=== PATIENT | male | born 1995 | race Two or more races ===

== ENCOUNTER 2024-09-04 15:08 | Inpatient (IN) | payer MEDICAID ==
[~2024-09-04] VITALS: Ht 172.7 cm; Wt 99.0 kg
--- NOTE | 2024-09-04 15:47 | ED.PDOC ---
History of Present Illness HPI Comments 29 y/o overweight M, with a history of kidney stones and marijuana use, presents with c/o nonradiating, right-sided flank pain, nausea, vomiting, and chills, today. Patient reports sudden and unprovoked onset of symptoms at 0800, this morning. He endorses on no history of recent injuries, sick contact, spoiled food, or any further relevant past medical, surgical, or family history. Patient denies any hematuria, hematemesis, diarrhea, fever, chills, or other associated symptoms at this time. Time Seen by MD: 15:40 Reviewed Notes: Nurses Notes, Medications, Allergies Allergies: Coded Allergies: NO KNOWN ALLERGIES (Unverified , 09/04/24) Information Source: Patient Mode of Arrival: Ambulatory Severity: Moderate Timing: Hours Duration: Since onset Prehospital treatment: None Past Medical History PAST MEDICAL HISTORY: Kidney Stones Surgical History: Denies all surgeries Family History Family History: Unknown Social History Smoker: Non-Smoker Alcohol: Denies ETOH Use Drugs: Marijuana Lives In: Home Constitutional: reports: chills; denies: diaphoresis, fatigue, fever, malaise, sweats, weakness, others EENTM: denies: blurred vision, double vision, ear bleeding, ear discharge, ear drainage, ear pain, ear ringing, eye pain, eye redness, hearing loss, mouth pain, mouth swelling, nasal discharge, nose bleeding, nose congestion, nose pain, photophobia, tearing, throat pain, throat swelling, voice changes, others Respiratory: denies: cough, hemoptysis, orthopnea, SOB at rest, shortness of breath, SOB with excertion, stridor, wheezing, others Cardiovascular: denies: chest pain, dizzy spells, diaphoresis, Dyspnea on exertion, edema, irregular heart beat, left arm pain, lightheadedness, palpitations, PND, syncope, others Gastrointestinal: reports: nausea, vomiting; denies: abdomen distended, abdominal pain, blood streaked bowels, constipated, diarrhea, dysphagia, difficulty swallowing, hematemesis, melena, poor appetite, poor fluid intake, rectal bleeding, rectal pain, others Genitourinary: reports: flank pain (right-side); denies: burning, dysuria, frequency, hematuria, incontinence, penile discharge, penile sore, pain, testicle pain, testicle swelling, urgency, others Neurological: denies: dizziness, fainting, headache, left sided numbness, left sided weakness, numbness, paresthesia, pre-existing deficit, right sided numbness, right sided weakness, seizure, speech problems, tingling, tremors, weakness, others Musculoskeletal: denies: back pain, gout, joint pain, joint swelling, muscle pain, muscle stiffness, neck pain, others Integumetry: denies: bruises, change in color, change in hair/nails, dryness, laceration, lesions, lumps, rash, wounds, others Allergic/Immunocompromised: denies: Difficulty Healing, Frequent Infections, Hives, Itching, others Hematologic/Lymphatic: denies: anemia, blood clots, easy bleeding, easy bruising, swollen glands, others Endocrine: denies: excessive hunger, excessive sweating, excessive thirst, excessive urination, flushing, intolerance to cold, intolerance to heat, unexplained weight gain, unexplained weight loss, others Psychiatric: denies: anxiety, bipolar disorder, depression, hopeless, panic disorder, schizophrenia, sleepless, suicidal, others All Other Systems: Reviewed and Negative Physical Exam General Appearance: Moderate Distress HEENT: Normal ENT Inspection, Pharynx Normal, TMs Normal Neck: Full Range of Motion, Non-Tender, Normal, Normal Inspection Respiratory: Chest Non-Tender, Lungs Clear, No Accessory Muscle Use, No Respir atory Distress, Normal Breath Sounds Cardiovascular: No Edema, No JVD, No Murmur, No Gallop, Normal Peripheral Pulses, Regular Rate/Rhythm Breast Exam: Deferred Gastrointestinal: No Organomegaly, Non Tender, No Pulsatile Mass, Normal Bowel Sounds, Soft Genitalia: Deferred Pelvic: Deferred Rectal: Deferred Extremities: No calf tenderness, Normal capillary refill, Normal inspection, Normal range of motion, Non-tender, No pedal edema Musculoskeletal : Location: Right Extremity Location: Back Apperance: Tenderness: Moderate Neurologic: Alert, plate maker II-XII nml as Tested, No Motor Deficits, Normal Affect, Normal Mood, No Sensory Deficits Cerebellar Function: Normal Reflexes: Normal Skin: Dry, Normal Color, Warm Lymphatic: No Adenopathy Was a procedure done? Was a procedure done?: No Differential Dx Considerations may include: nephrolithiasis, cystitis, musculoskeletal pain, among others X-Ray, Labs, Meds, VS Vital Signs Date Time Temp Pulse Resp B/P (MAP) Pulse Ox O2 Delivery O2 Flow Rate FiO2 09/04/24 15:20 97.2 55 18 146/80 (102) 97 97.2 Lab Test 09/04/24 16:12 09/04/24 15:40 Range/Units White Blood Count 13.7 H 4.4-10.8 10^3/uL Red Blood Count 5.41 4.5-5.90 10^6/uL Hemoglobin 15.7 13.5-17.5 g/dL Hematocrit 46.0 41.0-53.0 % Mean Corpuscular Volume 84.9 80.0-100.0 fL Mean Corpuscular Hemoglobin 29.0 28.0-32.0 pg Mean Corpuscular Hemoglobin Concent 34.2 32.0-36.0 g/dL Red Cell Distribution Width 13.6 11.8-14.3 % Platelet Count 221 140-450 10^3/uL Mean Platelet Volume 8.5 6.9-10.8 fL Neutrophils (%) (Auto) 91.4 H 37.0-80.0 % Lymphocytes (%) (Auto) 5.9 L 10.0-50.0 % Monocytes (%) (Auto) 2.5 0.0-12.0 % Eosinophils (%) (Auto) 0.0 0.0-7.0 % Basophils (%) (Auto) 0.2 0.0-2.0 % Neutrophils # (Auto) 12.5 H 1.6-8.6 10 ^3/uL Lymphocytes # (Auto) 0.8 0.4-5.4 10 ^3/uL Monocytes # (Auto) 0.3 0-1.3 10 ^3/uL Eosinophils # (Auto) 0 0-0.8 10 ^3/uL Basophils # (Auto) 0 0-0.2 10 ^3/uL Nucleated Red Blood Cells 0.1 % Sodium Level 138 136-145 mmol/L Potassium Level 4.2 3.5-5.1 mmol/L Chloride Level 107 98-107 mmol/L Carbon Dioxide Level 21 20-31 mmol/L Anion Gap 10 5-15 Blood Urea Nitrogen 9 9-23 mg/dL Creatinine 1.18 0.700-1.30 mg/dL Glomerular Filtration Rate Calc 85 >90 mL/min BUN/Creatinine Ratio 7.6 L 10.0-20.0 Serum Glucose 117 H 74-106 mg/dL Calcium Level 9.7 8.7-10.4 mg/dL Total Bilirubin 1.3 H 0.2-1.0 mg/dL Aspartate Amino Transferase (AST) 27 13-40 U/L Alanine Aminotransferase (ALT) 44 H 7-40 U/L Alkaline Phosphatase 76 46-116 U/L Total Protein 7.8 5.7-8.2 g/dL Albumin 4.9 H 3.2-4.8 g/dL Lipase 32 12-53 U/L Urine Color Light-yellow Yellow Urine Clarity Clear Clear Urine pH 6.5 5.0-9.0 Urine Specific [place] 1.024 1.001-1.035 Urine Protein Trace H Negative Urine Ketones Negative Negative Urine Blood 3+ H Negative /uL Urine Nitrite Negative Negative Urine Bilirubin Negative Negative Urine Urobilinogen Normal Negative mg/dL Urine Leukocyte Esterase Negative Negative /uL Urine RBC 22 0 - 3 /hpf Urine Microscopic WBC 1 0-3 /HPF Urine Squamous Epithelial Cells Few <5 /hpf Urine Bacteria None seen None Seen /hpf Urine Mucus Few None Seen Urine Glucose Normal Normal mg/dL CAT scan of the abdomen and pelvis shows: IMPRESSION: 1. 6-7 mm calculus proximal right ureter with mild right hydronephrosis. ( level of L3) 2. 2 small calculi lower pole left kidney no hydronephrosis The patient's urine test is negative for infection but positive for blood The CBC shows an elevated white blood cell count of 13.7 The rest of the chemistry panel is within normal limits and the CBC is within normal limits. This time, the patient continues to have pain The patient was given Toradol 30 mg IV push after being bolused with normal saline. Because of the stones, the patient was being admitted with a diagnosis of intractable abdominal pain as well as hydronephrosis. Images Reviewed?: Images reviewed and evaluated by me Time of 1ST Reevaluation: 16:10 Reevaluation 1ST: Unchanged Patient Education/Counseling: Diagnosis, Treatment, Prognosis Family Education/Counseling: No Family Present Departure 1 Departure Time of Disposition: 17:12 Impression: Primary Impression: Intractable abdominal pain Additional Impressions: Hydronephrosis, right Ureterolithiasis Disposition: ADMITTED INPATIENT Admit to: Med Surg Condition: Fair Critical Care Note Critical Care Time?: No Stability Stability form required: Yes Unstable for transfer: ED Physician Assesment (Clinical assesment) Heart Score Heart Score: Heart Score Response (Comments) Value History N/A 0 EKG N/A 0 Age N/A 0 Risk Factors N/A 0 Troponin N/A 0 Total 0 I personally scribed for DEANDRE ARCEO MD ([email or web address]) on 09/04/24 at 15:47. Electronically submitted by Dann Pal [email or web address]). DEANDRE ARCEO MD Sep 04, 2024 15:47
[2024-09-04 15:58] LABS: Urine Bacteria None Seen /hpf (None Seen)
[2024-09-04 16:08] LABS: Urine Blood 3+ /uL (Negative); Urine Clarity Clear (Clear); Urine Color Light-Yellow (Yellow); Urine Mucus FEW (None Seen); Urine Protein, UAD TRACE (Negative); Urine Specific Gravity 1.024 (1.001-1.035); Urine Squamous Epithelial Cell FEW /hpf (<5); Urine Urobilinogen Normal (Negative); Urine WBC 1 /HPF (0-3); Urine pH 6.5 (5.0-9.0)
[2024-09-04 16:25] LABS: Basophils # (auto) 0 10 ^3/uL (0-0.2); Basophils % (auto) 0.2 % (0.0-2.0); Eosinophils # (auto) 0 10 ^3/uL (0-0.8); Hemoglobin 15.7 g/dL (13.5-17.5); Lymphocytes # (auto) 0.8 10 ^3/uL (0.4-5.4); Lymphocytes % (auto) 5.9 % (10.0-50.0); Mean Corpuscular Hgb Conc. 34.2 g/dL (32.0-36.0); Mean Corpuscular Volume 84.9 fL (80.0-100.0); Monocytes # (auto) 0.3 10 ^3/uL (0-1.3); Monocytes % (auto) 2.5 % (0.0-12.0); Neutrophils # (auto) 12.5 10 ^3/uL (1.6-8.6); Neutrophils % (auto) 91.4 % (37.0-80.0); Nucleated Red Blood Cells % 0.1 %; Platelet Count (auto) 221 10^3/uL (140-450); Red Blood Cells 5.41 10^6/uL (4.5-5.90); Red Cell Distribution Width 13.6 % (11.8-14.3); White Blood Cell 13.7 10^3/uL (4.4-10.8)
--- NOTE | 2024-09-04 16:39 | DVH ---
Exam: CT CT AB PEL WO CON-NO ORAL OR IV History: right flank pain Comparison Study: None available at time of dictation. TECHNIQUE: Multidetector CT of the abdomen was performed from lung bases to pubic symphysis. Imaging was performed without IV contrast. Axial, coronal and sagittal multiplanar reformats were obtained fr om the axial data set by the technologist. Radiation Dose Information: CT Dose: CTDI volume is 14.57 mGy. Dose-length product is 790.05 mGy*cm FINDINGS: Evaluation of solid organs is limited due to lack of intravenous contrast use. Findings: Lung Bases: No acute or significant lung base finding. Normal heart size. No pleural or pericardial effusion. Liver: The liver is normal in size. No focal lesions. CT findings consistent with hepatic steatosis. Gallbladder and Biliary Tree: Unremarkable Spleen: Unremarkable Pancreas: The pancreas is grossly normal in appearance. Adrenal Glands: Unremarkable Kidneys: 2 small punctate nonobstructing calculi lower pole left kidney. 6-7 mm calculus in the proxi mal right ureter with mild right hydronephrosis Bladder: Grossly unremarkable for degree of distention. Bowel: The stomach is grossly normal in appearance. Small bowel and colon are normal in caliber and d istribution. The appendix is not visualized; however, no secondary findings of acute appendicitis id entified. Ascites: Absent Lymphadenopathy: No mesenteric, retroperitoneal or periportal lymphadenopathy. Abdominal Wall and Mesentery: Unremarkable. Vasculature: The visualized abdominal aorta is normal in size and caliber. Evaluation of abdominal a nd pelvic vessels is limited due to lack of intravenous contrast. Pelvic Organs: Unremarkable Musculoskeletal: No aggressive focal bony lesions, acute fractures or dislocation. Soft tissues: Unremarkable IMPRESSION: 1. 6-7 mm calculus proximal right ureter with mild right hydronephrosis. ( level of L3) 2. 2 small calculi lower pole left kidney no hydronephrosis Radiation optimization: All CT scans at this facility use at least one of these dose optimization jerrell hniques: automated exposure control mA and/or kV adjustment per patient size (includes targeted exam s where dose is matched to clinical indication) or iterative reconstruction.
[2024-09-04 16:43] LABS: Alkaline Phosphatase 76 U/L (46-116); Anion Gap 10 (5-15); Aspartate Aminotransferase 27 U/L (13-40); BUN/Creatinine Ratio 7.6 (10.0-20.0); Calcium 9.7 mg/dL (8.7-10.4); Carbon Dioxide 21 mmol/L (20-31); Chloride 107 mmol/L (98-107); Lipase 32 U/L (12-53); Potassium 4.2 mmol/L (3.5-5.1); Sodium 138 mmol/L (136-145); Total Protein 7.8 g/dL (5.7-8.2)
[2024-09-04 16:45] LABS: Alanine Aminotransferase 44 U/L (7-40); Albumin 4.9 g/dL (3.2-4.8); Bilirubin, Total 1.3 mg/dL (0.2-1.0); Blood Urea Nitrogen 9 mg/dL (9-23); Glucose 117 mg/dL (74-106)
[2024-09-04] MEDS ORDERED: ACETAMINOPHEN 325 MG TAB PO PRN (19:15)
[2024-09-04] MEDS ORDERED: HYDROcodone-ACET 5/325MG TAB PO PRN (19:15)
[2024-09-04] MEDS ORDERED: ONDANSETRON HCL 4 MG/2 ML VIAL IV PRN (19:15)
--- NOTE | 2024-09-04 22:53 | DVHHP2 ---
History of Present Illness Reason for Visit: Flank pain History of Present Illness 29-year-old male presents for evaluation of right flank pain. Patient reports history of kidney stones. He states developing right-sided flank pain 10 a with associated nausea, vomiting and occasional chills. Denies dysuria. No cardiac or respiratory symptoms. Past Medical History Kidney stones Past Surgical History Noncontributory Family History Noncontributory Smoke: No ALCOHOL: none Drugs: Marijuana Lives: with Family Review of Systems Review of Systems Review of systems are currently negative otherwise addressed in HPI. Allergies: Coded Allergies: NO KNOWN ALLERGIES (Unverified , 09/04/24) Medications Current Medications Medications Dose Ordered Sig/Brice Route Start Time Stop Time Status Last Admin Dose Admin Acetaminophen/ Hydrocodone Bitart 1 tab Q4HP PRN PO 09/04/24 19:15 Ondansetron HCl 4 mg Q4HP PRN IV 09/04/24 19:15 Acetaminophen 650 mg Q6HP PRN PO 09/04/24 19:15 Morphine Sulfate 2 mg Q6HPRN PRN IV 09/04/24 19:15 Exam Vital Signs Vital Signs Date Time Temp Pulse Resp B/P (MAP) Pulse Ox O2 Delivery O2 Flow Rate FiO2 09/04/24 15:20 97.2 55 18 146/80 (102) 97 97.2 Exam Gen: 29-year-old male in mild distress Skin: Warm, dry, normal color and texture, no rash. HEENT: Normocephalic atraumatic, mucous membranes moist and pink. Neck: Cervical and supraclavicular nodes normal without enlargement, trachea is midline, thyroid gland is normal without masses. Pulmonary: Clear to auscultation and percussion bilaterally. Cardiac: Regular rate and rhythm. No murmur Abdomen: Soft, right CVA tenderness, nondistended, bowel sounds present all 4 quadrants, no guarding, no rigidity, no organomegaly. Extremities: No cyanosis, clubbing, no edema Neuro: Cranial nerves II through XII grossly intact, normal affect and speech, no focal motor deficits. Labs/Xrays ORDERING PHYSICIAN: DEANDRE ARCEO MD PROCEDURE(s): ABPL - CT AB PEL WO CON-NO ORAL OR IV REASON: right flank pain ORDER NUMBER(s): [id number], ACCESSION NUMBER(s): [id number] Exam: CT CT AB PEL WO CON-NO ORAL OR IV History: right flank pain Comparison Study: None available at time of dictation. TECHNIQUE: Multidetector CT of the abdomen was performed from lung bases to pubic symphysis. Imaging was performed without IV contrast. Axial, coronal and sagittal multiplanar reformats were obtained from the axial data set by the technologist. Radiation Dose Information: CT Dose: CTDI volume is 14.57 mGy. Dose-length product is 790.05 mGy*cm FINDINGS: Evaluation of solid organs is limited due to lack of intravenous contrast use. Findings: Lung Bases: No acute or significant lung base finding. Normal heart size. No pleural or pericardial effusion. Liver: The liver is normal in size. No focal lesions. CT findings consistent with hepatic steatosis. Gallbladder and Biliary Tree: Unremarkable Spleen: Unremarkable Pancreas: The pancreas is grossly normal in appearance. Adrenal Glands: Unremarkable Kidneys: 2 small punctate nonobstructing calculi lower pole left kidney. 6-7 mm calculus in the proximal right ureter with mild right hydronephrosis Bladder: Grossly unremarkable for degree of distention. Bowel: The stomach is grossly normal in appearance. Small bowel and colon are normal in caliber and distribution. The appendix is not visualized; however, no secondary findings of acute appendicitis identified. Ascites: Absent Lymphadenopathy: No mesenteric, retroperitoneal or periportal lymphadenopathy. Abdominal Wall and Mesentery: Unremarkable. Vasculature: The visualized abdominal aorta is normal in size and caliber. Evaluation of abdominal and pelvic vessels is limited due to lack of intravenous contrast. Pelvic Organs: Unremarkable Musculoskeletal: No aggressive focal bony lesions, acute fractures or dislocation. Soft tissues: Unremarkable IMPRESSION: 1. 6-7 mm calculus proximal right ureter with mild right hydronephrosis. ( level of L3) 2. 2 small calculi lower pole left kidney no hydronephrosis Radiation optimization: All CT scans at this facility use at least one of these dose optimization techniques: automated exposure control mA and/or kV adjustment per patient size (includes targeted exams where dose is matched to clinical indication) or iterative reconstruction. Labs Test 09/04/24 16:12 09/04/24 15:40 Range/Units White Blood Count 13.7 H 4.4-10.8 10^3/uL Red Blood Count 5.41 4.5-5.90 10^6/uL Hemoglobin 15.7 13.5-17.5 g/dL Hematocrit 46.0 41.0-53.0 % Mean Corpuscular Volume 84.9 80.0-100.0 fL Mean Corpuscular Hemoglobin 29.0 28.0-32.0 pg Mean Corpuscular Hemoglobin Concent 34.2 32.0-36.0 g/dL Red Cell Distribution Width 13.6 11.8-14.3 % Platelet Count 221 140-450 10^3/uL Mean Platelet Volume 8.5 6.9-10.8 fL Neutrophils (%) (Auto) 91.4 H 37.0-80.0 % Lymphocytes (%) (Auto) 5.9 L 10.0-50.0 % Monocytes (%) (Auto) 2.5 0.0-12.0 % Eosinophils (%) (Auto) 0.0 0.0-7.0 % Basophils (%) (Auto) 0.2 0.0-2.0 % Neutrophils # (Auto) 12.5 H 1.6-8.6 10 ^3/uL Lymphocytes # (Auto) 0.8 0.4-5.4 10 ^3/uL Monocytes # (Auto) 0.3 0-1.3 10 ^3/uL Eosinophils # (Auto) 0 0-0.8 10 ^3/uL Basophils # (Auto) 0 0-0.2 10 ^3/uL Nucleated Red Blood Cells 0.1 % Sodium Level 138 136-145 mmol/L Potassium Level 4.2 3.5-5.1 mmol/L Chloride Level 107 98-107 mmol/L Carbon Dioxide Level 21 20-31 mmol/L Anion Gap 10 5-15 Blood Urea Nitrogen 9 9-23 mg/dL Creatinine 1.18 0.700-1.30 mg/dL Glomerular Filtration Rate Calc 85 >90 mL/min BUN/Creatinine Ratio 7.6 L 10.0-20.0 Serum Glucose 117 H 74-106 mg/dL Calcium Level 9.7 8.7-10.4 mg/dL Total Bilirubin 1.3 H 0.2-1.0 mg/dL Aspartate Amino Transferase (AST) 27 13-40 U/L Alanine Aminotransferase (ALT) 44 H 7-40 U/L Alkaline Phosphatase 76 46-116 U/L Total Protein 7.8 5.7-8.2 g/dL Albumin 4.9 H 3.2-4.8 g/dL Lipase 32 12-53 U/L Urine Color Light-yellow Yellow Urine Clarity Clear Clear Urine pH 6.5 5.0-9.0 Urine Specific [place] 1.024 1.001-1.035 Urine Protein Trace H Negative Urine Ketones Negative Negative Urine Blood 3+ H Negative /uL Urine Nitrite Negative Negative Urine Bilirubin Negative Negative Urine Urobilinogen Normal Negative mg/dL Urine Leukocyte Esterase Negative Negative /uL Urine RBC 22 0 - 3 /hpf Urine Microscopic WBC 1 0-3 /HPF Urine Squamous Epithelial Cells Few <5 /hpf Urine Bacteria None seen None Seen /hpf Urine Mucus Few None Seen Urine Glucose Normal Normal mg/dL Assessment/Plan Assessment/Plan Assessment Ureterolithiasis Right hydronephrosis Renal colic Plan Admit the patient to [facility] to the hospitalist Urology consultation Pain management Maintenance IV fluids Continue treatment per orders. Plan discussed with: Patient My Orders Orders - CALVIN DOUGLAS Procedure Category Date Status Time * Urology Consult CONS 09/04/24 Transmitted 19:14 Regular Diet DIET 09/05/24 Transmitted Breakfast Basic Metabolic Panel LAB 09/05/24 Verified 04:00 Admit ADMIT 09/04/24 Transmitted 19:14 Hydrocodone-Acet PHA 09/04/24 In Process 5/325mg Tab (Zion 19:15 Ondansetron Hcl PHA 09/04/24 In Process (Zofran) 19:15 Condition: Stable TELMA 09/04/24 In Process 19:14 Acetaminophen Tablet PHA 09/04/24 In Process (Tylenol Tablet) 19:15 Bedrest With Bathroom TELMA 09/04/24 In Process Privileg 19:14 Morphine Sulfate PHA 09/04/24 In Process Injection 19:15 Date of Service: Sep 04, 2024 Billing Provider: CALVIN DOUGLAS Common Visit Codes: [id number] INP/OBS CARE (MOD) CALVIN DOUGLAS Sep 04, 2024 22:53
[2024-09-04 22:54] VITALS: PULSE 71; RESP 16; O2SAT 95
[2024-09-04] MEDS: PROCHLORPERAZINE EDISYLATE 5 MG/ML 2ML VIAL IV ONE (23:20)
[2024-09-04] MEDS: KETOROLAC TROMETH 30 MG/ML 1ML VIAL IV ONE (23:20)
[2024-09-04] MEDS: SODIUM CHLORIDE 0.9% 1,000 ML IVB ONE (23:20)
[2024-09-04 23:37] VITALS: BP 120/78; PULSE 63; RESP 20; TEMP 97.7; O2SAT 96
[2024-09-05 04:37] LABS: Chloride 106 mmol/L (98-107); Potassium 3.6 mmol/L (3.5-5.1); Sodium 139 mmol/L (136-145)
[2024-09-05 04:39] LABS: Anion Gap 10 (5-15); Calcium 9.6 mg/dL (8.7-10.4); Carbon Dioxide 23 mmol/L (20-31)
[2024-09-05 04:44] LABS: Glucose 103 mg/dL (74-106)
[2024-09-05 05:00] VITALS: BP 112/73; PULSE 61; RESP 20; O2SAT 98
[2024-09-05 05:07] LABS: BUN/Creatinine Ratio 11.2 (10.0-20.0); Blood Urea Nitrogen 14 mg/dL (9-23)
[2024-09-05 08:30] VITALS: BP 133/85; PULSE 72; RESP 18; TEMP 97.5; O2SAT 97
--- NOTE | 2024-09-05 10:29 | DVHPN2 ---
Progress Note Date Seen: Sep 05, 2024 Medical Necessity Reason Pt with a Central, PICC or Fol: No Subjective Patient reports: No new complaints Review of Systems: HEENT:Normal, CVS:Normal, RESPIRATORY:Normal, GI:Normal, :Normal, MSK:Normal, NEURO:Normal Objective vital signs Vital Sign Date Time Temp Pulse Resp B/P (MAP) Pulse Ox O2 Delivery O2 Flow Rate FiO2 09/05/24 05:00 61 20 112/73 (86) 98 09/04/24 23:37 97.7 97.7 09/04/24 23:37 Room Air* 0 21 medications Current Medications Medications Dose Ordered Sig/Brice Route Start Time Stop Time Status Last Admin Dose Admin Acetaminophen/ Hydrocodone Bitart 1 tab Q4HP PRN PO 09/04/24 19:15 Ondansetron HCl 4 mg Q4HP PRN IV 09/04/24 19:15 Acetaminophen 650 mg Q6HP PRN PO 09/04/24 19:15 Morphine Sulfate 2 mg Q6HPRN PRN IV 09/04/24 19:15 Examination: GENERAL:Normal, HEENT:Normal, NECK:Normal, LUNGS:Normal, CVS:Normal, ABDOMEN:Normal, MSK:Normal, SKIN:Normal, NEURO:Normal, :Normal laboratory and microbiology Laboratory Tests 09/05/24 03:56 09/04/24 16:12 Test 09/05/24 03:56 Range/Units Serum Glucose 103 74-106 mg/dL Problem List/Assessment/Plan Problem List/Assessment/Plan #1 right renal stone with hydronephrosis: dw urology, npo after midnight, ivf #2 obesity #3 ? bipolar disorder Plan discussed with: Patient My Orders My Orders Orders - CALVIN ROIS MD Procedure Category Date Status Time NS PHA 09/05/24 Verified 10:30 Mannitol For Edema PHA 09/05/24 Verified Treatment 10:30 Npo After Midnight ORDERS 09/05/24 Verified Npo (Nothing By DIET 09/06/24 Verified Mouth) Diet Breakfast Basic Metabolic Panel LAB 09/06/24 Verified 06:00 Complete Blood Count LAB 09/06/24 Verified 06:00 Date of Service: Sep 05, 2024 Billing Provider: CALVIN RIOS MD Common Visit Codes: [id number] INP/OBS CARE(HIGH) CALVIN RIOS MD Sep 05, 2024 10:29
[2024-09-05] MEDS: MANNITOL FTV 25% 12.5 GM/50 ML 50 ML IV ONE (12:51)
[2024-09-05 13:00] VITALS: BP 135/78; PULSE 70; RESP 18; TEMP 97.7; O2SAT 97
[2024-09-05] MEDS: SODIUM CHLORIDE 0.9% 1,000 ML IV SCH (13:01)
[2024-09-05 16:34] VITALS: BP 131/77; PULSE 72; RESP 18; TEMP 98.4; O2SAT 96
--- NOTE | 2024-09-05 17:48 | DVHINCON2 ---
Date of service: Sep 05, 2024 Referring Physician hospitalist Reason for Consultation Kidney stone History of Present Illness History Source: Patient, MD Notes Exam Limitations: No limitations HPI 29 y/o overweight M, with a history of kidney stones and marijuana use, presents with c/o nonradiating, right-sided flank pain, nausea, vomiting, and chills, today. Patient reports sudden and unprovoked onset of symptoms at 0800, this morning. He endorses on no history of recent injuries, sick contact, spoiled food, or any further relevant past medical, surgical, or family history. Patient denies any hematuria, hematemesis, diarrhea, fever, chills, or other associated symptoms at this time. Home Meds Reported Medications Paliperidone Palmitate (Invega Trinza) 410 Mg/1.32 Ml Inj, 410 MG IM 09/06/24 Past Medical History Patient Family History: Diabetes mellitus G8 MOTHER Hypertension G8 MOTHER Review of Systems Comments Constitutional: reports: chills; denies: diaphoresis, fatigue, fever, malaise, sweats, weakness, others EENTM: denies: blurred vision, double vision, ear bleeding, ear discharge, ear drainage, ear pain, ear ringing, eye pain, eye redness, hearing loss, mouth pain, mouth swelling, nasal discharge, nose bleeding, nose congestion, nose pain, photophobia, tearing, throat pain, throat swelling, voice changes, others Respiratory: denies: cough, hemoptysis, orthopnea, SOB at rest, shortness of breath, SOB with excertion, stridor, wheezing, others Cardiovascular: denies: chest pain, dizzy spells, diaphoresis, Dyspnea on exe rtion, edema, irregular heart beat, left arm pain, lightheadedness, palpitations, PND, syncope, others Gastrointestinal: reports: nausea, vomiting; denies: abdomen distended, abdominal pain, blood streaked bowels, constipated, diarrhea, dysphagia, difficulty swallowing, hematemesis, melena, poor appetite, poor fluid intake, rectal bleeding, rectal pain, others Genitourinary: reports: flank pain (right-side); denies: burning, dysuria, frequency, hematuria, incontinence, penile discharge, penile sore, pain, testicle pain, testicle swelling, urgency, others Neurological: denies: dizziness, fainting, headache, left sided numbness, left sided weakness, numbness, paresthesia, pre-existing deficit, right sided numbness, right sided weakness, seizure, speech problems, tingling, tremors, weakness, others Musculoskeletal: denies: back pain, gout, joint pain, joint swelling, muscle pain, muscle stiffness, neck pain, others Integumetry: denies: bruises, change in color, change in hair/nails, dryness, laceration, lesions, lumps, rash, wounds, others Allergic/Immunocompromised: denies: Difficulty Healing, Frequent Infections, Hives, Itching, others Hematologic/Lymphatic: denies: anemia, blood clots, easy bleeding, easy bruising, swollen glands, others Endocrine: denies: excessive hunger, excessive sweating, excessive thirst, excessive urination, flushing, intolerance to cold, intolerance to heat, unexplained weight gain, unexplained weight loss, others Psychiatric: denies: anxiety, bipolar disorder, depression, hopeless, panic disorder, schizophrenia, sleepless, suicidal, others All Other Systems: Reviewed and Negative H&P Exam Vital Signs Vital Signs Date Time Temp Pulse Resp B/P (MAP) Pulse Ox O2 Delivery O2 Flow Rate FiO2 09/05/24 16:34 98.4 72 18 131/77 (95) 96 98.4 09/04/24 23:37 Room Air* 0 21 Comments General Appearance: Moderate Distress HEENT: Normal ENT Inspection, Pharynx Normal, TMs Normal Neck: Full Range of Motion, Non-Tender, Normal, Normal Inspection Respiratory: Chest Non-Tender, Lungs Clear, No Accessory Muscle Use, No Respiratory Distress, Normal Breath Sounds Cardiovascular: No Edema, No JVD, No Murmur, No Gallop, Normal Peripheral Pulses, Regular Rate/Rhythm Breast Exam: Deferred Gastrointestinal: No Organomegaly, Non Tender, No Pulsatile Mass, Normal Bowel Sounds, Soft Genitalia: Normal Pelvic: Deferred Rectal: Deferred Extremities: No calf tenderness, Normal capillary refill, Normal inspection, Normal range of motion, Non-tender, No pedal edema Musculoskeletal : Location: Right Extremity Location: Back Apperance: Tenderness: Moderate Neurologic: Alert, director of assessment II-XII nml as Tested, No Motor Deficits, Normal Affect, Normal Mood, No Sensory Deficits Cerebellar Function: Normal Reflexes: Normal Skin: Dry, Normal Color, Warm Lymphatic: No Adenopathy Labs/Xrays Labs Test 09/05/24 03:56 09/04/24 16:12 09/04/24 15:40 Range/Units Sodium Level 139 136-145 mmol/L Potassium Level 3.6 3.5-5.1 mmol/L Chloride Level 106 98-107 mmol/L Carbon Dioxide Level 23 20-31 mmol/L Anion Gap 10 5-15 Blood Urea Nitrogen 14 9-23 mg/dL Creatinine 1.25 0.700-1.30 mg/dL Glomerular Filtration Rate Calc 79 >90 mL/min BUN/Creatinine Ratio 11.2 10.0-20.0 Serum Glucose 103 74-106 mg/dL Calcium Level 9.6 8.7-10.4 mg/dL White Blood Count 13.7 H 4.4-10.8 10^3/uL Red Blood Count 5.41 4.5-5.90 10^6/uL Hemoglobin 15.7 13.5-17.5 g/dL Hematocrit 46.0 41.0-53.0 % Mean Corpuscular Volume 84.9 80.0-100.0 fL Mean Corpuscular Hemoglobin 29.0 28.0-32.0 pg Mean Corpuscular Hemoglobin Concent 34.2 32.0-36.0 g/dL Red Cell Distribution Width 13.6 11.8-14.3 % Platelet Count 221 140-450 10^3/uL Mean Platelet Volume 8.5 6.9-10.8 fL Neutrophils (%) (Auto) 91.4 H 37.0-80.0 % Lymphocytes (%) (Auto) 5.9 L 10.0-50.0 % Monocytes (%) (Auto) 2.5 0.0-12.0 % Eosinophils (%) (Auto) 0.0 0.0-7.0 % Basophils (%) (Auto) 0.2 0.0-2.0 % Neutrophils # (Auto) 12.5 H 1.6-8.6 10 ^3/uL Lymphocytes # (Auto) 0.8 0.4-5.4 10 ^3/uL Monocytes # (Auto) 0.3 0-1.3 10 ^3/uL Eosinophils # (Auto) 0 0-0.8 10 ^3/uL Basophils # (Auto) 0 0-0.2 10 ^3/uL Nucleated Red Blood Cells 0.1 % Total Bilirubin 1.3 H 0.2-1.0 mg/dL Aspartate Amino Transferase (AST) 27 13-40 U/L Alanine Aminotransferase (ALT) 44 H 7-40 U/L Alkaline Phosphatase 76 46-116 U/L Total Protein 7.8 5.7-8.2 g/dL Albumin 4.9 H 3.2-4.8 g/dL Lipase 32 12-53 U/L Urine Color Light-yellow Yellow Urine Clarity Clear Clear Urine pH 6.5 5.0-9.0 Urine Specific [place] 1.024 1.001-1.035 Urine Protein Trace H Negative Urine Ketones Negative Negative Urine Blood 3+ H Negative /uL Urine Nitrite Negative Negative Urine Bilirubin Negative Negative Urine Urobilinogen Normal Negative mg/dL Urine Leukocyte Esterase Negative Negative /uL Urine RBC 22 0 - 3 /hpf Urine Microscopic WBC 1 0-3 /HPF Urine Squamous Epithelial Cells Few <5 /hpf Urine Bacteria None seen None Seen /hpf Urine Mucus Few None Seen Urine Glucose Normal Normal mg/dL PATIENT: NGUYEN BAZAN ACCT: [id number] UNIT: [id number] : 1995 LOC: ER ROOM / BED: / AGE / SEX: 29 / M ADM STATUS: REG ER SERVICE 1540 ORDERING PHYSICIAN: DEANDRE ARCEO MD PROCEDURE(s): ABPL - CT AB PEL WO CON-NO ORAL OR IV REASON: right flank pain ORDER NUMBER(s): [id number], ACCESSION NUMBER(s): [id number] Exam: CT CT AB PEL WO CON-NO ORAL OR IV History: right flank pain Comparison Study: None available at time of dictation. TECHNIQUE: Multidetector CT of the abdomen was performed from lung bases to pubic symphysis. Imaging was performed without IV contrast. Axial, coronal and sagittal multiplanar reformats were obtained from the axial data set by the technologist. Radiation Dose Information: CT Dose: CTDI volume is 14.57 mGy. Dose-length product is 790.05 mGy*cm FINDINGS: Evaluation of solid organs is limited due to lack of intravenous contrast use. Findings: Lung Bases: No acute or significant lung base finding. Normal heart size. No pleural or pericardial effusion. Liver: The liver is normal in size. No focal lesions. CT findings consistent with hepatic steatosis. Gallbladder and Biliary Tree: Unremarkable Spleen: Unremarkable Pancreas: The pancreas is grossly normal in appearance. Adrenal Glands: Unremarkable Kidneys: 2 small punctate nonobstructing calculi lower pole left kidney. 6-7 mm calculus in the proximal right ureter with mild right hydronephrosis Bladder: Grossly unremarkable for degree of distention. Bowel: The stomach is grossly normal in appearance. Small bowel and colon are normal in caliber and distribution. The appendix is not visualized; however, no secondary findings of acute appendicitis identified. Ascites: Absent Lymphadenopathy: No mesenteric, retroperitoneal or periportal lymphadenopathy. Abdominal Wall and Mesentery: Unremarkable. Vasculature: The visualized abdominal aorta is normal in size and caliber. Evaluation of abdominal and pelvic vessels is limited due to lack of intravenous contrast. Pelvic Organs: Unremarkable Musculoskeletal: No aggressive focal bony lesions, acute fractures or dislocation. Soft tissues: Unremarkable IMPRESSION: 1. 6-7 mm calculus proximal right ureter with mild right hydronephrosis. ( level of L3) 2. 2 small calculi lower pole left kidney no hydronephrosis Radiation optimization: All CT scans at this facility use at least one of these dose optimization techniques: automated exposure control mA and/or kV adjustment per patient size (includes targeted exams where dose is matched to clinical indication) or iterative reconstruction. ATED BY: WHITLEY MADDEN Jr., DO DICTATED DATE/TIME: 09/04/241635 SIGNED BY: WHITLEY MADDEN Jr., SIGNED DATE/TIME: 09/04/24 163 CC: Assessment/Plan Problem List: (1) Ureterolithiasis (2) Hydronephrosis, right (3) Intractable abdominal pain Primary Diagnosis 7 mm right ureteral stone, mid Right hydronephrosis Left lower pole renal stone, 5 mm right flank pain Plan expulsive measures pain meds prn NPO Cystoscopy with right ureteral stent placement and right ESWL today Plan discussed with: Patient, Other CHRISTINE PRECIADO NP Sep 05, 2024 17:48 REESE VARGAS MD Sep 06, 2024 09:57
[2024-09-05 21:00] VITALS: BP 133/83; PULSE 75; RESP 17; TEMP 98.3; O2SAT 98
[2024-09-06] VITALS (11 sets, daily range): BP systolic 129–155; BP diastolic 67–82; PULSE 52–97; RESP 8–22; TEMP 97.6–98.4; O2SAT 94–100
[2024-09-06] MEDS ORDERED: [UNRECOGNIZED DRUG - CODE] IM (01:08)
[2024-09-06 07:01] LABS: Anion Gap 10 (5-15); Calcium 9.4 mg/dL (8.7-10.4); Carbon Dioxide 22 mmol/L (20-31); Potassium 3.9 mmol/L (3.5-5.1); Sodium 141 mmol/L (136-145)
[2024-09-06 07:06] LABS: Chloride 109 mmol/L (98-107)
[2024-09-06 07:07] LABS: BUN/Creatinine Ratio 12.9 (10.0-20.0); Blood Urea Nitrogen 11 mg/dL (9-23); Glucose 101 mg/dL (74-106)
[2024-09-06 07:45] LABS: Basophils # (auto) 0 10 ^3/uL (0-0.2); Basophils % (auto) 0.4 % (0.0-2.0); Eosinophils # (auto) 0 10 ^3/uL (0-0.8); Eosinophils % (auto) 0.2 % (0.0-7.0); Hematocrit 42.6 % (41.0-53.0); Hemoglobin 14.9 g/dL (13.5-17.5); Lymphocytes # (auto) 2.3 10 ^3/uL (0.4-5.4); Lymphocytes % (auto) 23.7 % (10.0-50.0); Mean Corpuscular Hgb Conc. 35.1 g/dL (32.0-36.0); Mean Corpuscular Volume 85.4 fL (80.0-100.0); Monocytes # (auto) 0.8 10 ^3/uL (0-1.3); Monocytes % (auto) 8.6 % (0.0-12.0); Neutrophils # (auto) 6.5 10 ^3/uL (1.6-8.6); Neutrophils % (auto) 67.1 % (37.0-80.0); Nucleated Red Blood Cells % 0.1 %; Platelet Count (auto) 199 10^3/uL (140-450); Red Blood Cells 4.99 10^6/uL (4.5-5.90); Red Cell Distribution Width 13.8 % (11.8-14.3); White Blood Cell 9.6 10^3/uL (4.4-10.8)
[2024-09-06] MEDS: MORPHINE SULFATE INJ 2 MG/ml SYRG IV PRN (08:39)
--- NOTE | 2024-09-06 10:24 | DVHPN2 ---
Progress Note - Dictate Date Seen: Sep 06, 2024 Medical Necessity Reason Pt with a Central, PICC or Fol: No Medical Necessity Reason right ureteral stone, 7 mm left renal stone, 4 mm Subjective Patient is currently pain-free but would like to undergo lithotripsy if possible. Since we have the lithotripsy machine available today, we will proceed with shockwave lithotripsy of his right ureteral calculus and left renal calculus vital signs Vital Sign Date Time Temp Pulse Resp B/P (MAP) Pulse Ox O2 Delivery O2 Flow Rate FiO2 09/06/24 08:39 78 18 132/65 09/06/24 08:16 97 Room Air* 0 21 09/06/24 05:00 97.9 97.9 Total Intake and Output 09/05/24 09/05/24 09/06/24 15:00 23:00 07:00 Intake Total 960 ml 950 ml Balance 960 ml 950 ml medications Current Medications Medications Dose Ordered Sig/Brice Route Start Time Stop Time Status Last Admin Dose Admin Acetaminophen/ Hydrocodone Bitart 1 tab Q4HP PRN PO 09/04/24 19:15 Ondansetron HCl 4 mg Q4HP PRN IV 09/04/24 19:15 Acetaminophen 650 mg Q6HP PRN PO 09/04/24 19:15 Morphine Sulfate 2 mg Q6HPRN PRN IV 09/04/24 19:15 09/06/24 08:39 2 MG Sodium Chloride 1,000 ml @ 125 mls/hr Q8H IV 09/05/24 10:30 09/06/24 06:13 125 MLS/HR objective NAD laboratory and microbiology Laboratory Tests 09/06/24 06:22 Test 09/06/24 06:22 Range/Units Serum Glucose 101 74-106 mg/dL Problem List Right mid ureteral calculus, 7 mm, with mild to moderate hydronephrosis Left nephrolithiasis Assessment/Plan Extracorporeal shockwave lithotripsy for both stones Plan discussed with: Patient, Other REESE VARGAS MD Sep 06, 2024 10:24
--- NOTE | 2024-09-06 11:55 | DVHPN2 ---
Progress Note Date Seen: Sep 06, 2024 Medical Necessity Reason Pt with a Central, PICC or Fol: No Subjective Patient reports: No new complaints Review of Systems: HEENT:Normal, CVS:Normal, RESPIRATORY:Normal, GI:Normal, :Normal, MSK:Normal, NEURO:Normal Objective vital signs Vital Sign Date Time Temp Pulse Resp B/P (MAP) Pulse Ox O2 Delivery O2 Flow Rate FiO2 09/06/24 09:09 78 17 128/68 09/06/24 08:16 97 Room Air* 0 21 09/06/24 05:00 97.9 97.9 Total Intake and Output 09/05/24 09/05/24 09/06/24 15:00 23:00 07:00 Intake Total 960 ml 950 ml Balance 960 ml 950 ml medications Current Medications Medications Dose Ordered Sig/Brice Route Start Time Stop Time Status Last Admin Dose Admin Acetaminophen/ Hydrocodone Bitart 1 tab Q4HP PRN PO 09/04/24 19:15 Ondansetron HCl 4 mg Q4HP PRN IV 09/04/24 19:15 Acetaminophen 650 mg Q6HP PRN PO 09/04/24 19:15 Morphine Sulfate 2 mg Q6HPRN PRN IV 09/04/24 19:15 09/06/24 08:39 2 MG Sodium Chloride 1,000 ml @ 125 mls/hr Q8H IV 09/05/24 10:30 09/06/24 10:49 125 MLS/HR Examination: GENERAL:Normal, HEENT:Normal, NECK:Normal, LUNGS:Normal, CVS:Normal, ABDOMEN:Normal, MSK:Normal, SKIN:Normal, NEURO:Normal, :Normal laboratory and microbiology Laboratory Tests 09/06/24 06:22 Test 09/06/24 06:22 Range/Units Serum Glucose 101 74-106 mg/dL Problem List/Assessment/Plan Problem List/Assessment/Plan #1 right renal stone with hydronephrosis: dw urology, npo after midnight, ivf. eswl today #2 obesity #3 ? bipolar disorder Plan discussed with: Patient Date of Service: Sep 06, 2024 Billing Provider: CALVIN RIOS MD Common Visit Codes: [id number] INP/OBS CARE(HIGH) CALVIN RIOS MD Sep 06, 2024 11:55
--- NOTE | 2024-09-06 11:55 | DVH ---
Date: 09/06/2024 10:26 AM Examination: XY KUB ABDOMEN SINGLE VIEW History: stones Comparison: 09/04/2024 TECHNIQUE: Frontal views of the abdomen was obtained. FINDINGS: Bowel gas pattern is unremarkable. The lung bases are unremarkable. No acute osseous abnormality identified. IMPRESSION: Nonobstructive bowel gas pattern. Renal stones better visualized on recent CT.
[2024-09-06] MEDS ORDERED: PROPOFOL 10 MG/ML 20 ML IV ONE (18:15)
[2024-09-06] MEDS ORDERED: LIDOCAINE 2% (LOCAL ANESTH.) PF 5ml SDV ONE (18:15)
[2024-09-06] MEDS ORDERED: MIDAZOLAM HCL 2MG/2ML 2ml VIAL (1mg/ml) ONE (18:15)
[2024-09-06] MEDS ORDERED: KETOROLAC TROMETH 30 MG/ML 1ML VIAL ONE (18:15)
[2024-09-06] MEDS ORDERED: fentaNYL CITRATE 100 MCG/2 ML VL ONE (18:15)
[2024-09-06] MEDS ORDERED: GLYCOPYRROLATE 0.2 MG/ML 1ML VIAL ONE (18:15)
[2024-09-06] MEDS ORDERED: ONDANSETRON HCL 4 MG/2 ML VIAL ONE (18:15)
[2024-09-06] MEDS ORDERED: DexAMETHasone SOD PHOS 10MG/1ML VIAL INJ ONE (18:15)
[2024-09-06] MEDS: CIPROFLOXACIN 400MG/200ML 200 ML IV ONE (18:16)
[2024-09-06] MEDS ORDERED: HYDROmorphone HCL 2 MG/ML VL/or syr ONE (18:26)
[2024-09-06] MEDS: IOHEXOL 300 MG/ML 100ML BOTTLE IJ ONE (19:01)
--- NOTE | 2024-09-06 19:39 | DVHNC2 ---
Procedure - OPERATIVE REPORT Pre-op. Diagnosis: right mid ureteral calculus, 6 mm Post-op. Diagnosis: Same as pre-op diagnosis Operation: Extracorporeal Shockwave Lithotripsy Anesthesia: General Indications: Patient was found to have symptomatic Urolithiasis. Patient is here to undergo ESWL therapy. Informed Consent: The procedure was explained to the patient. It's risks include but not limited to infection, bleeding, and damage to the kidney. Patient fully understood and signed the consent.Other options such as watchful waiting, Ureteroscopy, Percutaneous surgery and open surgery were also discussed. Details of Procedure: Under satisfactory anesthesia, the patient was positioned on the lithotripsy table in lithotomy position. Area of the genitalia was prepped and draped in usual sterile manner. Twenty-one [place] rigid cystoscope was used to access the bladder. The right ureteric orifice was cannulated with six [place] open-ended catheter was placed just below the stone to confirm and identification of the ureteral stone. Using fluoroscopy the stone was localized. Starting at low energy levels, shockwave treatment was commenced. The energy level was gradually increased and stone was fragmented. Once the treatment was completed, patient was then taken off the lithotripsy table and sent to recovery room in stable condition. Specimens: None Complications: None Findings: Stone Laterality: right mid ureteral stone, 6 mm Shocks Delivered: 3000 Max Power settin Fragmentation Quality: REESE Doherty MD Sep 06, 2024 19:39
[2024-09-06] MEDS ORDERED: HYDROmorphone HCL 2 MG/ML VL/or syr IV PRN (20:00)
[2024-09-07 01:00] VITALS: BP 132/73; PULSE 55; RESP 16; TEMP 97.8; O2SAT 93
[2024-09-07 05:00] VITALS: BP 119/65; PULSE 66; RESP 17; TEMP 97.8; O2SAT 95
[2024-09-07 08:25] VITALS: BP 123/77; PULSE 87; RESP 17; TEMP 97.7; O2SAT 98
[2024-09-07 11:58] VITALS: BP 127/77; PULSE 62; RESP 19; TEMP 97.4; O2SAT 95
--- NOTE | 2024-09-07 16:00 | DVHDS2 ---
Discharge Summary Date of Admission Sep 04, 2024 at 19:14 Date of Discharge: Sep 07, 2024 Admitting Diagnosis Obstructive uropathy Labs/Diagnostic Data: Laboratory Results Test 09/06/24 06:22 09/04/24 16:12 09/04/24 15:40 White Blood Count 9.6 10^3/uL (4.4-10.8) Red Blood Count 4.99 10^6/uL (4.5-5.90) Hemoglobin 14.9 g/dL (13.5-17.5) Hematocrit 42.6 % (41.0-53.0) Mean Corpuscular Volume 85.4 fL (80.0-100.0) Mean Corpuscular Hemoglobin 30.0 pg (28.0-32.0) Mean Corpuscular Hemoglobin Concent 35.1 g/dL (32.0-36.0) Red Cell Distribution Width 13.8 % (11.8-14.3) Platelet Count 199 10^3/uL (140-450) Mean Platelet Volume 9.3 fL (6.9-10.8) Neutrophils (%) (Auto) 67.1 % (37.0-80.0) Lymphocytes (%) (Auto) 23.7 % (10.0-50.0) Monocytes (%) (Auto) 8.6 % (0.0-12.0) Eosinophils (%) (Auto) 0.2 % (0.0-7.0) Basophils (%) (Auto) 0.4 % (0.0-2.0) Neutrophils # (Auto) 6.5 10 ^3/uL (1.6-8.6) Lymphocytes # (Auto) 2.3 10 ^3/uL (0.4-5.4) Monocytes # (Auto) 0.8 10 ^3/uL (0-1.3) Eosinophils # (Auto) 0 10 ^3/uL (0-0.8) Basophils # (Auto) 0 10 ^3/uL (0-0.2) Nucleated Red Blood Cells 0.1 % Sodium Level 141 mmol/L (136-145) Potassium Level 3.9 mmol/L (3.5-5.1) Chloride Level 109 mmol/L (98-107) Carbon Dioxide Level 22 mmol/L (20-31) Anion Gap 10 (5-15) Blood Urea Nitrogen 11 mg/dL (9-23) Creatinine 0.85 mg/dL (0.700-1.30) Glomerular Filtration Rate Calc 120 mL/min (>90) BUN/Creatinine Ratio 12.9 (10.0-20.0) Serum Glucose 101 mg/dL (74-106) Calcium Level 9.4 mg/dL (8.7-10.4) Total Bilirubin 1.3 mg/dL (0.2-1.0) Aspartate Amino Transferase (AST) 27 U/L (13-40) Alanine Aminotransferase (ALT) 44 U/L (7-40) Alkaline Phosphatase 76 U/L (46-116) Total Protein 7.8 g/dL (5.7-8.2) Albumin 4.9 g/dL (3.2-4.8) Lipase 32 U/L (12-53) Urine Color Light-yellow (Yellow) Urine Clarity Clear (Clear) Urine pH 6.5 (5.0-9.0) Urine Specific [place] 1.024 (1.001-1.035) Urine Protein Trace (Negative) Urine Ketones Negative (Negative) Urine Blood 3+ /uL (Negative) Urine Nitrite Negative (Negative) Urine Bilirubin Negative (Negative) Urine Urobilinogen Normal mg/dL (Negative) Urine Leukocyte Esterase Negative /uL (Negative) Urine RBC 22 /hpf (0 - 3) Urine Microscopic WBC 1 /HPF (0-3) Urine Squamous Epithelial Cells Few /hpf (<5) Urine Bacteria None seen /hpf (None Seen) Urine Mucus Few (None Seen) Urine Glucose Normal mg/dL (Normal) Other Laboratory Tests 09/06/24 06:22 Brief Hx & Hospital Course: History of Present Illness 29-year-old male presents for evaluation of right flank pain. Patient reports history of kidney stones. He states developing right-sided flank pain 10 a with associated nausea, vomiting and occasional chills. Denies dysuria. No cardiac or respiratory symptoms. Course of hospitalization: Patient was started on IV hydration, propulsion therapy, empiric antibiotic therapy. Neurology consultation was obtained. Patient underwent ESWL on 09/06/2024. Patient no longer has any pain. Patient reports that his hematuria is minimal. Patient has been cleared for discharge home. He will follow up with Urology in 1-2 weeks as well as his PCP in 1-2 weeks. Patient will be discharged home I Keflex 500 mg p.o. b.i.d. x4 days as well as Flomax 0.4 mg p.o. daily x4 days. Patient was agreeable with discharge plan. All questions answered. Physical examination General: Alert and Oriented x3. No acute distress. Well-nourished. Eyes: EOMI. Anicteric. HENT: Moist mucous membranes. Lungs: Clear to auscultation bilaterally. No accessory muscle use. Cardiovascular: Regular rate and rhythm. No murmur. No JVD. Abdomen: Soft, non-tender and non-distended. No palpable masses. Extremities: No edema. Non-tender. Skin: No rashes or lesions. Warm. Neurologic: No focal neurological deficits. CN II-XII grossly intact, but not individually tested. Psychiatric: Cooperative. Appropriate mood and affect. Total time spent with patient discussing and formulating plan of care: 35 minutes. This medical document was created using an electronic medical record system with [employer] dictation system. Although this document has been carefully reviewed, there may still be some phonetic and typographical errors. These areas are purely typographical due to imperfections of the software programs, and do not reflect any compromise in the patient's medical care. Consults/Reason for consult Urology: Obstructive uropathy Operations or Procedures 09/06/2024: ESWL Condition at Discharge: Fair Final Diagnosis/Problems List Obstructive Uropathy Secondary diagnosis: ? Bipolar disorder Obesity Discharge Disposition: Home Discharge Instruct/Medications Diet: Regular Activity: No Restrictions, As Tolerated Follow Up/Referral: PCP in 1-2 weeks Urology in 1-2 weeks Medications: 0.4 mg p.o. daily x4 days Keflex 500 mg p.o. daily x4 days 36 Discharge Statement: "Patient was advised to return to the ER or call 911 if any headaches, dizziness, shortness of breath, chest pain, abdominal pain, bleeding, fevers, or worsening of medical condition. Patient was counseled about treatment plan, medications, possible side effects, patientverbalized understanding. All questions were answered to the best of my ability. This discharge took greater then 30 minutes in planning, reviewing documentation, counseling the patient, and discussing with other team members." ASSESSMENT ASSESSMENT Assessment Obstructive Uropathy Date of Service: Sep 07, 2024 Billing Provider: RENEE HYDE NP Common Visit Codes: 45431-[facility]/OBS DISCH DAY >30min RENEE HYDE NP Sep 07, 2024 16:00
[2024-09-07 16:29] VITALS: BP 109/67; PULSE 70; RESP 15; TEMP 98; O2SAT 94
[2024-09-07] MEDS ORDERED: TAMS-35 PO (16:35)
[2024-09-07] MEDS ORDERED: CEPH500C PO (16:35)
== END 2024-09-07 17:30 | disposition home or self-care (01) | DRG 465 ==
LOC: ER 15:08 → OVERFLOW 19:14 → WEST WING 09-05 23:44
PROVIDERS: ADMIT Nurse Practitioner Acute Care; ATTEND Nurse Practitioner Acute Care
PROC: 0TF6XZZ Fragmentation in Right Ureter, External Approach (ICD-10-PCS; principal; 2024-09-06 18:16)
DX: N13.2 Hydronephrosis with renal and ureteral calculous obstruction (principal); E11.9 Type 2 diabetes mellitus without complications; E66.9 Obesity, unspecified; F31.9 Bipolar disorder, unspecified; I10 Essential (primary) hypertension; Z79.899 Other long term (current) drug therapy; Z87.442 Personal history of urinary calculi; Z68.30 Body mass index [BMI] 30.0-30.9, adult
CPT/HCPCS: 36415; 74018; 74176; 80048; 80053; 81001; 83690; 85025; 87081; A4344; G0378; J1100; J1885; J2003; J2250; J2405; J2704

== ENCOUNTER 2025-05-18 20:19 | Emergency (ER) | payer MEDICAID ==
[~2025-05-18] VITALS: Ht 172.7 cm; Wt 103.7 kg
[~2025-05-18 20:19] MED LIST: CEPH500C PO; TAMS-35 PO; [UNRECOGNIZED DRUG - CODE] IM
[2025-05-18 20:28] VITALS: BP 144/84; PULSE 105; RESP 16; TEMP 97.3; O2SAT 98
[2025-05-19] MEDS ORDERED: HYDROcodone-ACET 10/325MG TAB PO ONE (02:15)
[2025-05-22] MEDS ORDERED: AUG875T PO (15:06)
[2025-05-22] MEDS ORDERED: IBUP-1456 PO (15:06)
== END 2025-05-19 02:36 | disposition left against medical advice (07) ==
LOC: ER 20:19
DX: H92.02 Otalgia, left ear (principal); Z53.21 Procedure and treatment not carried out due to patient leaving prior to being seen by health care provider